=== PATIENT | female | born 2000 | race Caucasian/White ===

== ENCOUNTER → 2021-01-07 11:05 | Outpatient (BNVA) | payer BC, SELFPAY | PROVIDERS: Visit Provider Advanced Practice Midwife | DX: Z32.01 Encounter for pregnancy test, result positive (principal) | CPT/HCPCS: 81025 ==

== ENCOUNTER 2021-01-28 13:44 | Outpatient (REF) | payer BC, SELFPAY ==
[2021-01-28 15:48] LABS: MANUAL DIFF FLAG NO
[2021-01-28 15:53] LABS: Basophils Percent Auto 0.2 % (0-2); Eosinophils Absolute Auto 0.1 X10*3/uL (0.0-0.4); Eosinophils Percent Auto 0.5 % (0-4); Hematocrit 38.2 % (37-47); Hemoglobin 13.7 g/dl (12.0-16.0); Imm Gran Abs Auto 0.04 X10*3/uL (0.00-0.03); Imm Gran Pct Auto 0.4 % (0.0-0.4); Lymphocytes Absolute Auto 1.9 X10*3/uL (1.2-4.9); Lymphocytes Percent Auto 16.3 % (20-40); Mean Corpuscular HGB Conc 35.9 g/dl (31.0-35.0); Mean Corpuscular Hemoglobin 30.7 pg (27.0-33.0); Mean Corpuscular Volume 85.7 fL (80-98); Mean Platelet Volume 11.5 fL (9.4-12.3); Monocytes Absolute Auto 0.8 X10*3/uL (0.1-1.2); Monocytes Percent Auto 6.8 % (2-11); Neutrophils Absolute Auto 8.6 X10*3/uL (2.0-8.3); Neutrophils Percent Auto 75.8 % (45-73); Platelet Count 263 X10*3/uL (160-400); Red Blood Count 4.46 X10*6/uL (4.20-5.50); Red Cell Distribution Width 11.7 % (11.0-16.0); White Blood Count 11.4 X10*3/uL (4.8-10.8)
[2021-01-28 16:35] LABS: Syphilis Screen Nonreactive (Nonreactive)
[2021-01-28 16:39] LABS: Amphetamine Screen Urine Not Detected (Not Detect); Barbiturates, Urine Not Detected (Not Detect); Benzodiazepines Screen Urine Not Detected (Not Detect); Cannabinoid Screen Urine POSITIVE (Not Detect); Cocaine Screen Urine Not Detected (Not Detect); Opiate Screen Urine Not Detected (Not Detect); Phencyclidine Screen Urine Not Detected (Not Detect)
[2021-01-31 08:04] LABS: HBsAGNum1 0.38 S/CO (0.00-0.99); Hepatitis B Surface Antigen Negative (Negative)
[2021-01-31 08:09] LABS: HIV AB/AG Nonreactive (Nonreactive); HIV Num 1 0.06 S/CO (0.00-0.99); ~HepC Num1 0.08 S/CO (0.00-0.79); ~Hepatitis C Antibody Nonreactive (Nonreactive)
== END 2021-01-28 13:45 | disposition home or self-care (01) ==
LOC: HO.LAB 13:44
PROVIDERS: Visit Provider Advanced Practice Midwife
DX: Z34.90 Encounter for supervision of normal pregnancy, unspecified, unspecified trimester (principal)
CPT/HCPCS: 80307; 85025; 86762; 86780; 86787; 86803; 86850; 86886; 86900; 86901; 87340; 87389; 99212

== ENCOUNTER 2021-02-15 12:51 | Outpatient (REF) | payer BC, SELFPAY ==
[2021-02-16 09:47] LABS: CT PCR NOT DETECTED (Not Detect.); NG PCR NOT DETECTED (Not Detect.)
[2021-02-16 13:46] LABS: BV Int Neg Control Negative (Negative); BV Int Pos Control Positive (Positive)
== END 2021-02-15 12:52 | disposition home or self-care (01) ==
LOC: HO.LAB 12:51
PROVIDERS: Visit Provider Advanced Practice Midwife
DX: Z34.90 Encounter for supervision of normal pregnancy, unspecified, unspecified trimester (principal); Z20.2 Contact with and (suspected) exposure to infections with a predominantly sexual mode of transmission
CPT/HCPCS: 87480; 87491; 87510; 87591; 87660; 99212

== ENCOUNTER 2021-02-18 12:48 | Outpatient (REF) | payer BC, SELFPAY ==
--- NOTE | ~2021-02-18 | US_ITS ---
EXAMINATION: OBSTETRICAL ULTRASOUND, FIRST TRIMESTER HISTORY: 21-year-old at 12.0 weeks of gestation NT screening COMPARISON: None TECHNIQUE: Real time transabdominal imaging with color and M-mode Doppler. FINDINGS: A single, live IUP CRL of 48.7 mm c/w 11.5wks is noted. Heart Rate: 163 beats per minute. Normal yolk sac seen. NT was 1.5.mm. NB Present The embryo appears sonographically wnl for this GA. Both maternal ovaries are seen and appear normal. GESTATIONAL AGE: 1. Established GA: 12.0 wks 2. GA from AUA: 11.5 wks ESTIMATED DATE OF DELIVERY: 1. Established MISBAH: 09/02/2021 2. MISBAH from AUA: 09/04/2021 US/US OB 1T nuc measure IMPRESSION: 1. iA single live IUP 2. Size equals dates 3. NT of 1.5 mm MFM Consultation: I reviewed the ultrasound findings along with significance of NT measurement. The NT of less than 3mm is generally reassuring. However, the sensitivity for T21 detection is only 60%. I reviewed the availability of serum aneuploidy screening which includes cell-free DNA and placental protein based tests. I discussed the sensitivity, false-positive rate, and other limitations associated with each test. I also reviewed the availability of invasive diagnostic tests that are associated small but definite risk of miscarriage. We also reviewed the differences between screening tests and diagnostic tests. After our discussion, she opted for the First trimester screening that is based on cell-free DNA or non-invasive testing (NIPT). The result will be faxed to your office in approximately 7 days. A follow up at 18 weeks for survey has been scheduled. Thank you very much for this referral. Total time 20 minutes. The time spent was devoted to counseling the patient about the disease and diagnosis, coordinating care including reviewing her records, pertinent lab data and studies, as well as discussing diagnostic evaluation and workup, plan therapeutic interventions and future disposition of care. This includes any additional research needed to obtain further information in formulating the plan of care of this patient. This note was generated with a voice recognition program. Please excuse any errors which may have been overlooked during my review of this note. Sometimes these errors may affect the content or meaning of a given sentence.
== END 2021-02-18 12:49 | disposition home or self-care (01) ==
LOC: HO.US 12:48
PROVIDERS: Visit Provider Advanced Practice Midwife
DX: Z36.82 Encounter for antenatal screening for nuchal translucency (principal)
CPT/HCPCS: 76813

== ENCOUNTER → 2021-02-25 14:36 | Outpatient (BNVA) | payer BC, SELFPAY | PROVIDERS: Visit Provider Advanced Practice Midwife | DX: Z34.90 Encounter for supervision of normal pregnancy, unspecified, unspecified trimester (principal); Z3A.13 13 weeks gestation of pregnancy | CPT/HCPCS: 81003; 99212 ==

== ENCOUNTER → 2021-03-15 14:15 | Outpatient (BNVA) | payer BC, SELFPAY | PROVIDERS: Visit Provider Advanced Practice Midwife | DX: O99.322 Drug use complicating pregnancy, second trimester (principal); F12.90 Cannabis use, unspecified, uncomplicated; Z3A.15 15 weeks gestation of pregnancy | CPT/HCPCS: 81003; 99212 ==

== ENCOUNTER 2021-04-08 12:52 | Outpatient (REF) | payer BC, SELFPAY ==
--- NOTE | ~2021-04-08 | US_ITS ---
EXAMINATION: US OBSTETRICAL CLINICAL INFORMATION: 21-year-old at 19.0 weeks of gestation Screening anomaly COMPARISON: 02/18/2021 TECHNIQUE: Real-time transabdominal ultrasound was performed using C1-5 megahertz transducer. FINDINGS: A single, active, fetus is seen in vertex presentation. The placenta is posterior without previa, and the amniotic fluid volume is wnl. MEASUREMENTS: 1. Biparietal Diameter: 4.3 cm; 19.1 wks 2. Occipital Frontal Diameter: 5.4 cm 3. Head Circumference: 16.4 cm; 18.3 wks 4. Abdominal Circumference: 13.0 cm; 18.4 wks 5. Femur Length: 3.0 cm; 19.2 wks 6. Humerus Length: 2.8 cm; 19.0 wks 7. Tibia Length: 2.5 cm; 18.6 wks 8. Ulna Length: 2.7 cm; 19.6 wks 9. Lateral ventricle: 0.7 cm 10. Cerebellum: 1.9 cm; 19.3 wks 11. Cisterna Magna: 0.3 cm 12. Nuchal Fold: 3.5 mm 13. Heart Rate: 152 beats per minute Rt ovary: normal Lt ovary: normal Cervical length 3.0 cm on T/A. GESTATIONAL AGE: 1. Established GA: 19.0 wks 2. GA from [facility]: 18.6 wks ESTIMATED DATE OF DELIVERY: 1. Established MISBAH: 09/02/2021 2. MISBAH from [facility]: 09/03/2021 ANATOMY: The visualized anatomy includes but not limited to: 1. Cranium: Normal 2. Intracranial anatomy: cavum septum pellucidi, lateral ventricles, choroid plexus, cerebellum, posterior fossa, third and fourth ventricles. 3. face: orbits, lip/palate, profile, nasal bone 4. Heart: four-chamber view of the heart, ventricular septum, foramen ovale, pulmonary vein, left and right outflow tracts, three-vessel view, 3 vessel trachea view, aortic and ductal arches, situs.. 5. Diaphragm: Normal 6. Abdominal wall: Normal 7. Cord Insertion: Normal 8. Spine: Cervical, thoracic, lumbar, sacral. 9. Stomach: Normal size and shape 10. Right Kidney: Normal 11. Left Kidney: Normal 12. 3 vessel cord: Normal 13. Upper extremity: Open hands, fifth digit. 14. Lower extremity: Tibia, fibula, bilateral feet. 15. Bladder: Normal 16. Genitalia: Female, patient aware US/US OB /maternal detail IMPRESSION: 1. Single, living, intrauterine with appropriate biometry. 2. Normal survey DISCUSSION: I reviewed today's ultrasound findings. We discussed the limitations of ultrasound in diagnosing aneuploidy and other congenital abnormalities. I reviewed the differences between screening test and diagnostic test. Amniocentesis was discussed and declined. She had low risk N IPT. She was informed that the baseline incidence of congenital abnormalities is approximately 3-5%. Not all these conditions are diagnosable in utero. RECOMMENDATIONS: 1. Follow-up when necessary Thank you for allowing me to participate in her care. Total time 30 minutes. The time spent was devoted to counseling the patient about the disease and diagnosis, coordinating care including reviewing her records, pertinent lab data and studies, as well as discussing diagnostic evaluation and workup, plan therapeutic interventions and future disposition of care. This includes any additional research needed to obtain further information in formulating the plan of care of this patient. This note was generated with a voice recognition program. Please excuse any errors which may have been overlooked during my review of this note. Sometimes these errors may affect the content or meaning of a given sentence.
== END 2021-04-08 12:53 | disposition home or self-care (01) ==
LOC: HO.US 12:52
PROVIDERS: Visit Provider Advanced Practice Midwife
DX: Z34.92 Encounter for supervision of normal pregnancy, unspecified, second trimester (principal); Z36.3 Encounter for antenatal screening for malformations
CPT/HCPCS: 76811

== ENCOUNTER → 2021-04-12 14:37 | Outpatient (BNVA) | payer BC, SELFPAY | PROVIDERS: Visit Provider Advanced Practice Midwife | DX: Z34.92 Encounter for supervision of normal pregnancy, unspecified, second trimester (principal); Z3A.19 19 weeks gestation of pregnancy | CPT/HCPCS: 81003; 99212 ==

== ENCOUNTER → 2021-05-10 11:29 | Outpatient (BNVA) | payer BC, SELFPAY | PROVIDERS: Visit Provider Advanced Practice Midwife | DX: Z34.02 Encounter for supervision of normal first pregnancy, second trimester (principal); Z3A.23 23 weeks gestation of pregnancy | CPT/HCPCS: 81003; 99212 ==

== ENCOUNTER 2021-06-06 09:48 | Outpatient (REF) | payer BC, SELFPAY ==
[2021-06-06 13:22] LABS: Hematocrit 35.7 % (37-47); Hemoglobin 12.4 g/dl (12.0-16.0); Mean Corpuscular HGB Conc 34.7 g/dl (31.0-35.0); Mean Corpuscular Hemoglobin 31.2 pg (27.0-33.0); Mean Corpuscular Volume 89.7 fL (80-98); Mean Platelet Volume 11.9 fL (9.4-12.3); Platelet Count 186 X10*3/uL (160-400); Red Blood Count 3.98 X10*6/uL (4.20-5.50); Red Cell Distribution Width 12.1 % (11.0-16.0); White Blood Count 14.2 X10*3/uL (4.8-10.8)
[2021-06-06 13:55] LABS: Glucose 1 Hour PP 50gm Dose 89 mg/dL (60-140)
[2021-06-06 14:00] LABS: Amphetamine Screen Urine Not Detected (Not Detect); Barbiturates, Urine Not Detected (Not Detect); Benzodiazepines Screen Urine Not Detected (Not Detect); Cannabinoid Screen Urine POSITIVE (Not Detect); Cocaine Screen Urine Not Detected (Not Detect); Fentanyl, urine Not Detected (Not Detect); Opiate Screen Urine Not Detected (Not Detect); Phencyclidine Screen Urine Not Detected (Not Detect)
[2021-06-06 15:00] LABS: Syphilis Screen Nonreactive (Nonreactive)
== END 2021-06-06 09:49 | disposition home or self-care (01) ==
LOC: HO.LAB 09:48
PROVIDERS: Visit Provider Advanced Practice Midwife
DX: O26.892 Other specified pregnancy related conditions, second trimester (principal); F12.90 Cannabis use, unspecified, uncomplicated; Z20.2 Contact with and (suspected) exposure to infections with a predominantly sexual mode of transmission; Z3A.27 27 weeks gestation of pregnancy
CPT/HCPCS: 80307; 81003; 85027; 86780; 86850; 99212

== ENCOUNTER → 2021-06-22 09:40 | Outpatient (BNVA) | payer BC, SELFPAY | PROVIDERS: Visit Provider Advanced Practice Midwife | DX: O26.893 Other specified pregnancy related conditions, third trimester (principal); Z67.91 Unspecified blood type, Rh negative; Z3A.29 29 weeks gestation of pregnancy | CPT/HCPCS: 96372; 99212 ==

== ENCOUNTER → 2021-07-07 10:35 | Outpatient (BNVA) | payer BC, SELFPAY | PROVIDERS: Visit Provider Obstetrics & Gynecology | DX: O99.323 Drug use complicating pregnancy, third trimester (principal); F12.90 Cannabis use, unspecified, uncomplicated; Z3A.31 31 weeks gestation of pregnancy | CPT/HCPCS: 90471; 90715; 99212 ==

== ENCOUNTER → 2021-07-25 08:44 | Outpatient (BNVA) | payer BC, SELFPAY | PROVIDERS: Visit Provider Advanced Practice Midwife | DX: O99.213 Obesity complicating pregnancy, third trimester (principal); O26.00 Excessive weight gain in pregnancy, unspecified trimester; E66.9 Obesity, unspecified; O26.893 Other specified pregnancy related conditions, third trimester; Z3A.34 34 weeks gestation of pregnancy | CPT/HCPCS: 81003; 90686; 99212 ==

== ENCOUNTER 2021-08-08 19:37 | Emergency (ER) | payer BC, SELFPAY ==
[2021-08-08] VITALS (14 sets, daily range): BP systolic 112–154; BP diastolic 55–97; PULSE 76–110; RESP 16–30; TEMP 36.8; O2SAT 97–100; BMI 35.7
--- NOTE | 2021-08-08 19:50 | PC.NURSE ---
2 IV lines established. 1 li of NS infusing per MD Strange order. Covid swab, T&S and all other labs obtained and sent.
--- NOTE | 2021-08-08 20:00 | PC.NURSE ---
x 2 at bedside with multiple staff. OB DR Blanco paged STAT for impending delivery. T 143 @ this time. VSS.
[2021-08-08 20:04] LABS: MANUAL DIFF FLAG NO
[2021-08-08] MEDS: 0.9 % Sodium Chloride 1,000 ML 999 ML IV (20:06)
[2021-08-08 20:19] LABS: Alanine Aminotransferase 12 U/L (0-31); Albumin Level 3.4 g/dL (3.5-5.0); Alkaline Phosphatase 152 U/L (39-117); Anion Gap 20 (12-20); Aspartate Amino Transferase 14 U/L (5-31); Bilirubin Direct 0.2 mg/dL (0.0-0.5); Bilirubin Total 0.3 mg/dL (0.0-1.0); Blood Urea Nitrogen 7 mg/dL (9-16); Calcium 8.6 mg/dL (8.4-10.2); Carbon Dioxide 13 mmol/L (22-29); Chloride 106 mmol/L (96-108); Creatinine Clr Calc Pharmacy 175.8; Estimated Glomerular Filt Rate > 60; Glucose Random 127 mg/dL (60-115); Potassium 3.5 mmol/L (3.3-5.1); Sodium 135 mmol/L (135-145); Total Protein 6.2 g/dL (6.5-8.0)
[2021-08-08 20:28] LABS: Basophils Percent Auto 0.1 % (0-2); Eosinophils Percent Auto 0.1 % (0-4); Hematocrit 37.7 % (37.0-47.0); Hemoglobin 13.1 g/dl (12.0-16.0); Imm Gran Abs Auto 0.21 X10*3/uL (0.00-0.03); Imm Gran Pct Auto 0.9 % (0.0-0.4); Lymphocytes Absolute Auto 1.8 X10*3/uL (1.2-4.9); Lymphocytes Percent Auto 8.2 % (20-40); Mean Corpuscular HGB Conc 34.7 g/dl (31.0-35.0); Mean Corpuscular Hemoglobin 30.9 pg (27.0-33.0); Mean Corpuscular Volume 88.9 fL (80.0-98.0); Monocytes Absolute Auto 0.9 X10*3/uL (0.1-1.2); Monocytes Percent Auto 3.8 % (2-11); Neutrophils Absolute Auto 19.2 x10*3/uL (2.0-8.3); Neutrophils Percent Auto 86.9 % (45-73); Platelet Count 201 X10*3/uL (160-400); Red Blood Count 4.24 X10*6/uL (4.20-5.50); Red Cell Distribution Width 12.6 % (11.0-16.0); White Blood Count 22.1 X10*3/uL (4.8-10.8)
[2021-08-08 20:39] LABS: COVID-19 Test Negative (Negative)
--- NOTE | 2021-08-08 20:47 | PC.NURSE ---
2039 Head of baby delivered, nuchal cord around neck. Baby delivered @ 2043, first 9. HR of baby 140 at time of delivery. Per Zerbe to infuse 500 ml of 20 mg of Pitocin in 1 li of LR; infusing per order once shoulders delivered @ 2039.
--- NOTE | 2021-08-08 20:50 | PC.NURSE ---
Cord blood sample obtained per MD Bella pierson.
--- NOTE | 2021-08-08 20:52 | PC.NURSE ---
10 minute 9
--- NOTE | 2021-08-08 20:54 | PC.NURSE ---
Addendum entered by Aylin Carias 08/08/21 20:55: Placenta noted to be completely intact/ Original Note: Placenta delivered @ 2053.
--- NOTE | 2021-08-08 21:00 | PC.NURSE ---
Vitals on baby: HR 156 bpm, RR 60, axillary temp 98.1
--- NOTE | 2021-08-08 21:07 | PC.NURSE ---
Dr Blanco at bedside for sutures.
--- NOTE | 2021-08-08 21:18 | P.CONOB_ITS ---
OB Consult Note - HPI Data Service Date: 08/08/21 Primary Care Provider: None Physician Narrative I was called on Mag De La Cruz who is a 21 year old female at 36 weeks of gestation presented with crampy abdominal pain and urge to push, pelvic exam by Dr. 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 Paternal Grandmother Lung tumor Paternal Aunt Breast cancer Social History Social History Household Members: Family Alcohol intake: former Substance Use Type: Marijuana Trauma History: none Advance Directives: No Advance Directives Information Provided: Yes Patient : Yes Gender identity: Female Meds Allergies Allergy/AdvReac Type Severity Reaction Status Date / Time No Known Allergies Allergy Verified 08/08/21 19:40 Home Medications Medication Instructions Recorded Confirmed Last Taken Type vitamins with calcium 1 tab PO DAILY 01/28/21 07/25/21 Unknown History no.72-iron 29 mg-folic acid 1 mg tablet OB Flowsheet OB Flowsheet & Tools OB Flowsheet Initial Weight: 175 lb Date -?-?-?-?-?-?-?-?-?-?-?-?- EGA Weight Gest Week Fundal Ht Present FHR move Efface % Edema BP PrePreg We Weight GTT -?-?-?-?-?-?-?-?-?-?-?-?- Glucose LV Protein Blood Type 01/28/21 -?-?-?-?-?-?-?-?-?-?-?-?- 9w 0d 172 lb (-3 lb) 172 lb -?-?-?-?-?-?-?-?-?-?-?-?- 02/15/21 -?-?-?-?-?-?-?-?-?-?-?-?- 11w 4d 188 lb (+13 lb) unknown 11 0 110/62 188 lb -?-?-?-?-?-?-?-?-?-?-?-?- 02/25/21 -?-?-?-?-?-?-?-?-?-?-?-?- 13w 0d 184 lb (+9 lb) 13 150 102/60 184 lb -?-?-?-?-?-?-?-?-?-?-?--?- 03/15/21 -?-?-?-?-?-?-?-?-?-?-?-?- 15w 4d 187 lb (+12 lb) 15 140 110/60 187 l b -?-?-?-?-?-?-?-?-?-?-?-?- 04/12/21 -?-?-?-?-?-?-?-?-?-?-?-?- 19w 4d 196 lb (+21 lb) 20 150 100/60 196 l b -?-?-?-?-?-?-?-?-?-?-?-?- 05/10/21 -?-?-?-?-?-?-?-?-?-?-?-?- 23w 4d 195 lb (+20 lb) 23 150 active 132/88 195 lb -?-?-?-?-?-?-?-?-?-?-?-?- 06/06/21 -?-?-?-?-?-?--?-?-?-?-?-?- 27w 3d 208 lb (+33 lb) 29 140 active 100/60 208 lb -?-?-?-?-?-?-?-?-?-?-?-?- 06/22/21 -?-?-?-?-?-?-?-?-?-?-?-?- 29w 5d 208 lb 8 oz (+33 lb 8 oz) 29 130 active 100/60 208 lb 8 oz -?-?-?-?-?-?-?-?-?-?-?-?- 07/07/21 -?-?-?-?-?-?-?-?-?-?-?-?- 31w 6d 218 lb (+43 lb) 31 140 active 100/60 218 lb -?-?--?-?-?-?-?-?-?-?-?-?- 07/25/21 -?-?-?-?-?-?-?-?-?-?-?-?- 34w 3d 228 lb (+53 lb) 34 ?? 140 active 118/68 228 lb -?-?-?-?-?-?-?-?-?-?-?-?- MISBAH Calculator Estimated Delivery Date Method Current WG Current Estimate 09/02/21 LMP (Certain) 36w 3d Plans 21 y/o EDC: 09/02/21 AB negative- rec'd rhogam at 28w Obesity: enc. healthy diet, exercise daily x 30min. Counseled/initiated BASA protocol until 6 wks pp Marijuana smoker: advised to quit. Counsled re: Marijuana use-counseled re: stopping, not to use during . Advised random UDS, testing at delivery, testing, family welfare social work professor visit/assessment , possible filing 51A. Provide a smoke free environment at home and in the car, and no exposure to second hand smoke. Rh negative: Rhogam at 28wk given - hx of anxiety: EPDS 7 at intake. offered RVCC-declined, she reports good support from family - cigarette smoker-quit in first trimester NT: study Panorama: low risk, female FAS: study Lives with FOB and his family, smokers (outside the home) Plans to bottle feed Tdap given on 07/07 COVID vaccine recommended Influenza vaccine to be given next visit, 07/21 Notes Visit Date: 07/25/21 Patient is here for her visit at 34 weeks and 3 days she has gained 10 lb since the last visit 24 hour recall reveals high calorie meal last night. Patient's that she was doing well avoiding marijuana but she did smoke 2 weeks ago because she woke up nauseous and could not take her vitamins or eat without it. I recommended against using marijuana as an excuse to take vitamins and that they can be taken at any point during the day. Revisited the rationale that was discussed at the last visit with Dr. Bella Umaña. also cautioned against excessive weight gain and discussed healthier choices she is taking the baby aspirin. She said she will get the flu shot today. discussed balancing intake with activity. RTC 2 weeks. Daja Rivera Visit Date: 07/07/21 Presenting for routine OB visit with no complaints, no contractions, no leakage of fluid or bleeding. Good movement. On vitamin 1 tablet p.o. q.d. and baby aspirin 162 mg p.o. q.d. A/P: 31 weeks and 6 days of gestation with: 1-history of positive THC on urine tox screen-the patient states that she quit 4 weeks ago, will repeat urine tox screen. Discussed with the patient the following effects of Marijuana use on : -Studies noted that children who were exposed to marijuana in utero had lower scores on tests of visual problem solving, visual?motor coordination, decreased attention span and behavioral problems by age 14 years and visual analysis, poorer reading and spelling scores and lower teacher-perceived school performance, smaller lengths and head circumferences as well as lower weights among exposed offspring. These findings were more pronounced among women who used more marijuana, particularly during the first and second trimesters -Available evidence does not consistently suggest that marijuana causes structural anatomic defects in humans except one study showed that marijuana use in the first month of , the odds of anencephaly in the offspring of users was significantly increased to 2.5 - No increase in the rates of test but had somewhat higher stillbirth rate, no increase in the risk of -At the end, the patient was informed that screening substance abuse will be done throughout this , the purpose of which is to allow treatment of the woman?s substance use, not to punish or prosecute her; In addition the patient was informed of the potential ramification of a positive screen result including mandatory reporting requirements 2-Rh negative, the patient received RhoGAM last visit 3-counseled the patient regarding COVID and flu vaccine and Tdap, all the pros and cons, risks, and benefits were discussed with the patient, recommended for the patient received those vaccines. Patient will proceed with COVID vaccine would prefer to have the flu vaccine next visit year will receive Tdap today. 4- labor warnings given to the patient, she is to call if contractions occur more than 6 an hour, any leakage of fluid or bleeding or decreased movement, continue on vitamin and baby aspirin daily. Follow-up in 2 weeks Mino Blanco Visit Date: 06/22/21 Patient is here for visit she is feeling fairly good she appears slightly edematous all over but she does not feel it except that her feet could she did a lot a walking at the [place] the other day for 5 or 6 hours. She feels she is eating pretty well she goes for walks often with her boyfriend she is getting ready for the baby. Her blood work was all within normal limits and she is not anemic and no signs of diabetes she is a B negative with a negative antibody screen so she got her RhoGAM today with explanation. Discussed every 2 week visit from here on out and she knows what to call for. Daja Rivera Visit Date: 06/06/21 27.3 wk ANUJA. Taking PNV, BASA qd. Good FM. Denies LOF, VB or abd pain. Doing well with no concerns. Good appetite and stays well hydrated. Feels like she is eating more recently. Gained 13lbs since last visit. She is sleeping well. She will do GTT and 28 week labs today after visit. She is not signed up for [facility], she has plans to call this week. Has discontinued marijuana use on week ago. Counseled on UDS at next visit. Discussed: PTL, PEC and decreased FM warnings and when to call for further evaluation. Maintain Covid-19 precautions and COVID vaccine per CDC recommendations. Staying well hydrated, drink 8-10 glasses of water per day, maintaining a healthy diet and light exercise to help prevent excessive weight gain. FKC: have something to eat and drink, should have 5 kicks in 1hr or 10 kicks in 2 hrs, if not call immediately for evaluation. Rhogam to be done this week pending ABS. Kimberly Marshall Visit Date: 05/10/21 23.4 wk ANUJA. Feeling well. Taking PNV and BASA. Good FM, no LOF, VB or abd pain. She reports nausea, she had 1 episode of vomiting this morning. Currently not using MJ. She used last week to help with her nausea. She admits to not using B6 and Unisom as ordered, she uses Unisom occ asionally for sleep. Reviewed B6 and Unisom protocol. She is eating well with adequate water intake. Plan 28 week labs at next visit. Discussed: PTL - LOF, VB, abd pain, regular contractions. PEC - headaches: not resolved with 2 regular strength Tylenol doses, visual disturbances warnings and when to call for further evaluation. Maintain Covid-19 precautions. Naseem Seth Visit Date: 04/12/21 19.4 wk ANUJA. Feeling well. Taking PNV. Good FM, no LOF, VB or abd pain. Reviewed labs with the patient. Counseled re: marijuana and tobacco use. She reports quitting tobacco in the first trimester and has decreased her marijuana use. She uses marijuana for nausea, which she says has improved. She has not taken B6/Unisom for weeks. It did not help her in the first trimester. Currently living with her boyfriend and his family. She reports that they smoke outside of the home. Discussed marijuana use: counseled re: stopping, not to use during . Advised random UDS, testing at delivery, testing, family welfare social work professor visit/assessment , possible filing 51A. Provide a smoke free environment at home and in the car, and no exposure to secondhand smoke. Recommended online childbirth classes, WIC enrollment and [facility] classes. ABneg blood type. Discussed: PTL - LOF, VB, abd pain, regular contractions. PEC - headaches: not resolved with 2 regular strength Tylenol doses, visual disturbances warnings and when to call for further evaluation. Maintain Covid-19 precautions. BASA protocol until after 6 wks initiated today. Counseled re: the BASA protocol to prevent PEC due to risk factors including first and overweightness. The patient is agreeable, Rx'd BASA. Codi Cooley Visit Date: 03/15/21 pt is here for her pnv- mostly the n&v is better- but sunday she threw up more. she's been taking the unisom only to help her sleep if she needs it, but not the vit b6. Mostly she's trying to wean off marijuana- but she is still smoking about once a day to help her deal with the nausea. Discussed and urged to quit. has FAS scheduled. discussed moderation in wt gain overall. Daja Shelton [place] Visit Date: 02/25/21 Patient is here for visit there was some confusion that she had her physical at her last visit but since we were not able to hear the heart rate then we were able to hear it today and she was glad to hear that. She is trying to eat well and has lost weight in results even though she is not having as much nausea and vomiting and only threw up once today she feels she is doing much better the see bands on her wrists are working better now. She is trying to not use marijuana much she only has used it to help her get something down in the day but she is leaning away from it I did discuss the ramifications of marijuana in and urged quitting. I reviewed all her test results which were normal and the panoramic result s came in since she checked them this morning so they were given to her in an envelope. Her next visit can be in a month and her FA S ultrasound will be in 5-6 w. Daja Shelton [place] Visit Date: 02/15/21 Patient is here for her new OB physical exam she has 11 weeks and 4 days by dates she reports that she is trying to eat well and following an lissett on her phone to choose healthier snacks I did notice 16 lb weight gain in 2 weeks so I did furnish her with information about the Mediterranean diet and encouraged mor e activity and moderation and drinking of water which she assures me she is. She is in between states moving from [place] to [place] but will be staying here all week. She was nervous about her 1st electrical helper exam I showed her her anatomy which was within normal limits she is size equals dates but I was unable to hear FHT possibly secondary to adipose and gestational age she has a and she ultrasound scheduled for Sunday so dates can be reassessed at that point. I did discuss with her the possibility that the might not be as far long as she thinks. She is feeling slightly better with the nausea and only takes the Unisom when she needs it. Her EP DS score was 7. She says everything is fine with the relationship. I did not discuss the positive marijuana screen further at this visit. I reviewed her labs which were within normal limits and her blood type which is AB-negative and discussed RhoGAM which will be given at 28 weeks and why. Daja Shelton [place] Visit Date: 01/28/21 20 yr old G1 here for Nurse intake. LMP 11/26/20, MISBAH 09/02/21. Pt is currently living in [place], but moving to [place] next week to live with her boyfriend and his family. was not planned but she is getting used to it. She is having nausea and vomiting, but is using Vit B6 and Unisom which she says helps a lot. Reviewed with pt more frequent smalller meals, keep well hydrated. pt to call if unable to keep fluids down for more than 12 hrs. pt was smoking cigs and MJ daily but stopped when she found out she was . She does report hx of anxiety in past and with meds.She was advised to call if any new anxiety arises and she needs referral. Discussed practice with pt including 24 hr investor relations specialist MD. She is aware we are delivering at [facility]. Pt accepts.Reviewed NT u/s andPanorama testing, if she desires. Pt denies any fam hx of Colon or ovarian cancer. She has a paternal aunt with breast cancer. Discussed lab work including UDS. Labs ordered and pt to do today.NT is scheduled, as well as OB PE. Pt aware to call with any questions or concerns. Felicia Cadet History 1 Elective abortions 0 Para 0 Spontaneous abortions 0 Hx # Term Pregnancies 0 Ectopic pregnancies 0 Hx # Pregnancies 0 Multiple births 0 OB Consult Results Labs CBC & Chem 7: 08/08/21 19:56 08/08/21 19:56 Labs: Short CBC 08/08/21 Range/Units 19:56 WBC 22.1 H (4.8-10.8) X10*3/uL Hgb 13.1 (12.0-16.0) g/dl Hct 37.7 (37.0-47.0) % Plt Count 201 (160-400) X10*3/uL BMP 08/08/21 19:56 Sodium 135 Potassium 3.5 Chloride 106 Carbon Dioxide 13 L BUN 7 L Creatinine 0.59 Calcium 8.6 Liver Function 08/08/21 Range/Units 19:56 Total Bilirubin 0.3 (0.0-1.0) mg/dL Direct Bilirubin 0.2 (0.0-0.5) mg/dL AST 14 (5-31) U/L ALT 12 (0-31) U/L Alkaline Phosphatase 152 H (39-117) U/L Albumin 3.4 L (3.5-5.0) g/dL Antibody Screen Antibody Screen POSITIVE 08/08/21 19:56 OB - CN: A/P Assessment and Plan (1) : Status: Acute Assessment and Plan: In within 20 minutes the patient was pushing at +2 to 3 pushed for few minutes Dr. Strange deliverered the baby vertex presentation was followed by the placenta and cord blood collection I was asked to take over after delivery. inspection revealed first-degree perineal laceration and a right periurethral laceration under local anesthesia and using 3-0 Vicryl for the first-degree perineal laceration and a 4-0 Vicryl for the right periurethral laceration that were repaired with no complication. Patient tolerated the procedure well. Mom and baby will be transferred to [facility]. OB Procedures - Admit Record Additional Comments Dr. Strange did the delivery and delivery of the placenta followed by cord collection. I took over afterwards, inspection revealed first-degree day perineal laceration was repaired under local anesthetic with 3-0 Vicryl and a right periurethral laceration repaired under local anesthesia with 4-0 Vicryl. The patient tolerated the procedure well.
--- NOTE | 2021-08-08 21:21 | ED.PREGNANCY ---
HPI - General Chief complaint: General Medical Stated complaint: Contractions Time Seen by Provider: 08/08/21 21:21 Source: patient Mode of arrival: ambulatory Limitations: no limitations History of Present Illness HPI Narrative: Patient comes into the emergency room complaining of uterine contractions. Patient is known to be a at 36 weeks of gestational age. Patient states that 3 hours prior to arrival she started ashley. Patient does not remember having her water break, she thinks that her membranes ruptured possibly 36 hours ago approximately. Patient complaining of contractions lasting 30 seconds, reoccurring every minute and a half approximately. Related Data Home Medications Medication Instructions Recorded Confirmed vitamins with calcium 1 tab PO DAILY 01/28/21 07/25/21 no.72-iron 29 mg-folic acid 1 mg tablet Previous Rx's Medication Instructions Recorded aspirin 81 mg chewable tablet (St 162 mg PO DAILY #30 tab 04/12/21 Isaiah Aspirin) Allergies Allergy/AdvReac Type Severity Reaction Status Date / Time No Known Allergies Allergy Verified 08/08/21 19:40 Review of Systems Review of Systems: Constitutional : No Weight loss, No Fever, No Chills, No Night Sweats, No Fatigue, No Malaise ENT/Mouth : No Hearing loss, No Ear Pain, No Nasal Congestion, No Sinus Pain, No Hoarseness, No sore throat, No Rhinorrhea, No Swallowing Difficulty Eyes: No Eye Pain, No Swelling, No Redness, No Foreign Body, No Discharge, No Vision Changes Cardiovascular : No Chest Pain, No SOB, No Dyspnea on Exertion, No Orthopnea, No Edema, No Palpitations Respiratory : No Cough, No Sputum, No Wheezing, No Smoke Exposure, No Dyspnea Gastrointestinal : No Nausea, No Vomiting, No Diarrhea, No Constipation, No abdominal Pain, No Hematochezia, No Melena Genitourinary : Complaining of painful uterine contractions lasting 30 seconds, recurring every minute and half Musculoskeletal : No joint pain, No Myalgias, No Joint Swelling Skin : No Skin Lesions, No rash Neuro : No Weakness, No Numbness, No Paresthesias, No Loss of Consciousness, No Dizziness, No Headache Psych : No Anxiety/Panic, No Depression, No SI/HI/AH/VH, No Social Issues, Heme/Lymph: No Bruising, No Bleeding,No Lymphadenopathy Endocrine : No Polyuria, No Polydipsia, No Temperature Intolerance PMFSH Past Medical History Medical History Marijuana use Family History Family History Maternal Grandmother No problems noted. Paternal Grandmother Lung tumor Paternal Aunt Breast cancer Social History Social History (Reviewed 07/25/21 @ 09:04 by [facility]) Household Members: Family Alcohol intake: former Substance Use Type: Marijuana Trauma History: none Advance Directives: No Advance Directives Information Provided: Yes Patient : Yes Gender identity: Female Physical Exam Vital Signs: Vital Signs: Last Vital Signs Temp 98.3 F 08/08/21 19:40 Pulse 82 08/08/21 22:11 Resp 20 08/08/21 22:11 BP 122/77 08/08/21 22:11 Pulse Ox 98 08/08/21 21:36 Body Mass Index 35.7 Const: Other: Appearance: Alert. Oriented X3. Very comfortable ashley Eyes: Pupils equal, round and reactive to light. ENT: Pharynx normal. Neck: Normal inspection. Neck supple. No lymph nodes noted. No crepitus CVS: Normal heart rate and rhythm. Pulses normal. Normal S1 and S2 Respiratory: No respiratory distress. Breath sounds normal. No Wheezing. No rales Abdomen: Soft and nontender. No rigidity. No distention. : 10 cm dilated, head in +3 station Skin: Skin warm and dry. Normal skin color. Normal skin turgor. Extremities: No lower extremity edema. No Lacerations. No Rash Neuro: Oriented X 3. No motor deficit. No sensory deficit. Moving all extermities. No slurred speech. Course Course Course Narrative: Unknown time of rupture of membranes. Patient progressed uneventfully to normal spontaneous delivery at 08:40, a female infant, clear fluid, shoulder without incidence. Baby girl to mom's abdomen, cover with warm blankets and dried. Apgars 9/9 at 1 and 5 minutes of life. Weight 2460 g, 5 lb 6.8 oz. Spontaneous delivery of placenta with 3 vessel cord by control traction and maternal effort. Placenta appears complete and intact. Additional flow following placental delivery controlled with Pitocin, initially 10 IM after shoulder delivery, then 20 units in 1 L NS . Estimated blood loss [address] Blanco took over pt's care for the laceration repair, pt has a 2nd degree tear in the right labia, periurethral. The perineum was repaired under lidocaine anesthesia, grade 1 laceration. Normal anatomy restored, hemostasis achieved. Mom and baby are stable in recovery process. We called [facility]. Since patient has all her records in [facility], they recommended to transfer the patient to [facility]. [facility] accepted the patient and the baby MDM - OB/Uterine Contractions Lab Data Result diagrams: 08/08/21 19:56 08/08/21 19:56 Labs: Lab Results 08/08/21 08/08/21 08/08/21 Range/Units 19:56 19:56 19:56 WBC 22.1 H (4.8-10.8) X10*3/uL RBC 4.24 (4.20-5.50) X10*6/uL Hgb 13.1 (12.0-16.0) g/dl Hct 37.7 (37.0-47.0) % MCV 88.9 (80.0-98.0) fL MCH 30.9 (27.0-33.0) pg MCHC 34.7 (31.0-35.0) g/dl RDW 12.6 (11.0-16.0) % Plt Count 201 (160-400) X10*3/uL MPV 12.0 (9.4-12.3) fL Immature Gran % (Auto) 0.9 H (0.0-0.4) % Neut % (Auto) 86.9 H (45-73) % Lymph % (Auto) 8.2 L (20-40) % Heard % (Auto) 3.8 (2-11) % Eos % (Auto) 0.1 (0-4) % Baso % (Auto) 0.1 (0-2) % Lymph # (Auto) 1.8 (1.2-4.9) X10*3/uL Heard # (Auto) 0.9 (0.1-1.2) X10*3/uL Eos # (Auto) 0.0 (0.0-0.4) X10*3/uL Baso # (Auto) 0.0 (0.0-0.2) X10*3/uL Abs Immat Gran (auto) 0.21 H (0.00-0.03) X10*3/uL Absolute Neuts (auto) 19.2 H (2.0-8.3) x10*3/uL Absolute Nucleated RBC 0.000 (0.0-0.012) X10*3/uL Nucleated RBC % (auto) 0.0 (0.0-0.2) /100WBC Sodium 135 (135-145) mmol/L Potassium 3.5 (3.3-5.1) mmol/L Chloride 106 (96-108) mmol/L Carbon Dioxide 13 L (22-29) mmol/L Anion Gap 20 (12-20) BUN 7 L (9-16) mg/dL Creatinine 0.59 (0.5-1.4) mg/dL Estim Creat Clear Calc 175.8 Estimated GFR > 60 Random Glucose 127 H (60-115) mg/dL Calcium 8.6 (8.4-10.2) mg/dL Total Bilirubin 0.3 (0.0-1.0) mg/dL Direct Bilirubin 0.2 (0.0-0.5) mg/dL AST 14 (5-31) U/L ALT 12 (0-31) U/L Alkaline Phosphatase 152 H (39-117) U/L Total Protein 6.2 L (6.5-8.0) g/dL Albumin 3.4 L (3.5-5.0) g/dL COVID-19 (LEANA) Negative (Negative) COVID-19 Clin Com See Note Blood Type Antibody Screen Antibody Identification 08/08/21 Range/Units 19:56 WBC (4.8-10.8) X10*3/uL RBC (4.20-5.50) X10*6/uL Hgb (12.0-16.0) g/dl Hct (37.0-47.0) % MCV (80.0-98.0) fL MCH (27.0-33.0) pg MCHC (31.0-35.0) g/dl RDW (11.0-16.0) % Plt Count (160-400) X10*3/uL MPV (9.4-12.3) fL Immature Gran % (Auto) (0.0-0.4) % Neut % (Auto) (45-73) % Lymph % (Auto) (20-40) % Heard % (Auto) (2-11) % Eos % (Auto) (0-4) % Baso % (Auto) (0-2) % Lymph # (Auto) (1.2-4.9) X10*3/uL Heard # (Auto) (0.1-1.2) X10*3/uL Eos # (Auto) (0.0-0.4) X10*3/uL Baso # (Auto) (0.0-0.2) X10*3/uL Abs Immat Gran (auto) (0.00-0.03) X10*3/uL Absolute Neuts (auto) (2.0-8.3) x10*3/uL Absolute Nucleated RBC (0.0-0.012) X10*3/uL Nucleated RBC % (auto) (0.0-0.2) /100WBC Sodium (135-145) mmol/L Potassium (3.3-5.1) mmol/L Chloride (96-108) mmol/L Carbon Dioxide (22-29) mmol/L Anion Gap (12-20) BUN (9-16) mg/dL Creatinine (0.5-1.4) mg/dL Estim Creat Clear Calc Estimated GFR Random Glucose (60-115) mg/dL Calcium (8.4-10.2) mg/dL Total Bilirubin (0.0-1.0) mg/dL Direct Bilirubin (0.0-0.5) mg/dL AST (5-31) U/L ALT (0-31) U/L Alkaline Phosphatase (39-117) U/L Total Protein (6.5-8.0) g/dL Albumin (3.5-5.0) g/dL COVID-19 (LEANA) (Negative) COVID-19 Clin Com Blood Type AB Negative Antibody Screen POSITIVE Antibody Identification Anti-D Critical Care Time Critical Care Time Critical Care Time: Yes Total Critical Care Time: 60 Attestation: 60 minutes spent in direct patient care Discharge Plan Discharge Clinical Impression: Baby delivered more than 24 hours after rupture of membranes Patient Disposition: Xfer Acute Care Hospital Transfer Details: [facility] Prescriptions: No Action PNV,calcium 72-iron,carb-folic 29 mg iron- 1 mg tablet 1 tab PO DAILY RF: 0 aspirin [[facility] Aspirin] 81 mg tablet,chewable 162 mg PO DAILY Qty: 30 RF: 6
--- NOTE | 2021-08-08 22:02 | PC.NURSE ---
This RN contacting pharmacy regarding order for Pitocin infusion as ER MD unable to put order in. Pharmacy to correct.
--- NOTE | 2021-08-08 22:03 | PC.NURSE ---
Mom further elaborates, G1, EDC 09/02. Mom denies any complications throughout thus far. States that she felt a gush of fluids on 08/06 but denies any further leakage/pain, states she did not think anything of it. Mom reports contractions starting approx 3 hours before [place] [facility], contractions noted to be 1 minute apart. Pt immediately transferred into room 14. Baby born @ 2043. VSS. Bleeding controlled. Placenta intact. EMS contacted for transport to [facility].
--- NOTE | 2021-08-08 22:35 | PC.NURSE ---
Pharmacy unable to put in order for Pitocin as ordered by MD. See comments in MAR for dose instructions. 500 ml bolus initially infused @ 2039. Additional 500 ml bolus infusing @ 125 ml/hr.
--- NOTE | 2021-08-08 22:45 | PC.NURSE ---
Call to [facility] regarding transfer to [facility]
--- NOTE | 2021-08-08 22:59 | PC.NURSE ---
Report given to ROBIN Jose, [facility].
== END 2021-08-08 23:26 | disposition short-term general hospital (02) ==
PROVIDERS: Emergency Provider Emergency Medicine
DX: O42.113 Preterm premature rupture of membranes, onset of labor more than 24 hours following rupture, third trimester (principal); O71.82 Other specified trauma to perineum and vulva; O99.324 Drug use complicating childbirth; F12.90 Cannabis use, unspecified, uncomplicated; Z3A.36 36 weeks gestation of pregnancy; Z37.0 Single live birth; Z20.822 Contact with and (suspected) exposure to COVID-19
CPT/HCPCS: 36415; 59409; 80053; 82248; 85025; 86850; 86870; 86900; 86901; 87635; 96360; 96372; 99285; 99291; J2590

== ENCOUNTER → 2021-09-21 13:25 | Outpatient (BNVA) | payer BC, SELFPAY | PROVIDERS: Visit Provider Advanced Practice Midwife | DX: Z39.2 Encounter for routine postpartum follow-up (principal); Z30.09 Encounter for other general counseling and advice on contraception; Z30.011 Encounter for initial prescription of contraceptive pills | CPT/HCPCS: 99212 ==

== ENCOUNTER 2022-05-24 13:52 | Outpatient (REF) | payer BC, SELFPAY ==
[2022-05-25 06:20] LABS: CT PCR NOT DETECTED (Not Detect.); NG PCR NOT DETECTED (Not Detect.)
== END 2022-05-24 13:53 | disposition home or self-care (01) ==
LOC: HO.LAB 13:52
PROVIDERS: Visit Provider Advanced Practice Midwife
DX: Z01.419 Encounter for gynecological examination (general) (routine) without abnormal findings (principal); Z20.2 Contact with and (suspected) exposure to infections with a predominantly sexual mode of transmission
CPT/HCPCS: 87491; 87591; 88142

== ENCOUNTER 2023-06-07 10:00 | Outpatient (REF) | payer BC, SELFPAY ==
[2023-06-08 09:51] LABS: CT PCR NOT DETECTED (Not Detect.); NG PCR NOT DETECTED (Not Detect.)
== END 2023-06-07 10:01 | disposition home or self-care (01) ==
LOC: HO.LNP 10:00
PROVIDERS: Visit Provider Advanced Practice Midwife
DX: Z01.419 Encounter for gynecological examination (general) (routine) without abnormal findings (principal); Z20.2 Contact with and (suspected) exposure to infections with a predominantly sexual mode of transmission
CPT/HCPCS: 0353U

== ENCOUNTER 2023-06-07 10:00 | Outpatient (AMB) | payer BC, SELFPAY ==
--- NOTE | 2023-06-07 10:07 | MHC.OFFVIS ---
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 Scribed for MACKENZIE Kelly by Tara Cee medical records manager, on 06/07/2023 at 10:20 am EST. Supervising Film Or Videotape Editor: Supervising Film Or Videotape Editor Present (Tessa) Allergies No Known Allergies Allergy (Verified 06/07/23 10:10) Is last menstrual period known: Yes Last menstrual period: 06/03/23 HPI HPI Comments History of Present Illness Details She is a premenopausal woman presenting for annual exam. Doing well with no operations program manager concerns. She admits to eating healthy and tries to stay active with exercise. Currently sexually active. Uses OCP and is doing well; is interested in future . Denies vaginal itching and irritation. STD screening and blood work offered; she declines. Denies family hx of breast, colon and ovarian cancer. Last pap smear 05/25/22 She denies any contraindications to control such as: migraines with aura, history of DVT or pulmonary emboli, high blood pressure, liver disease, thrombolic disorders, Lupus, +YANNI, or smoking. PFSH Medical History Marijuana use Family History Maternal Grandmother No problems noted. Paternal Grandmother Lung tumor Paternal Aunt Breast cancer Brother Hypertension Obesity Social History Household Members: Family Both parents involved: Yes Alcohol intake: current Alcohol intake frequency: holidays/special occasions only Patient Tobacco Use Status: Never used Tobacco Substance Use Type: Marijuana Trauma History: none Sexual orientation: Straight/Heterosexual Gender identity: Female Female Reproductive History Menstrual Age of Menarche: 13 Duration of menses: 3-5 days Date of last menstrual period: 06/03/23 control method: pills Total pregnancies: 1 Full term: 1 Number of Living Children: 1 Date of last pap smear: 05/25/22 Physical Exam Vital Signs: Last Vital Signs BP 122/80 06/07/23 10:08 BMI result Body Mass Index 38.6 Const General: cooperative, healthy appearing, no acute distress, well developed and alert Orientation/consciousness: patient oriented x3 HEENT Head: Yes normal to inspection Eyes General: appearance normal, both eyes and all related structures Neck Neck: Yes normal visual inspection Thyroid: Thyroid normal Chest Chest palpation & inspection: normal inspection of the chest Breast/axilla inspection: normal inspection of the breasts (no puckering, dimpling, peau de orange, retraction, discharge, masses) Breast/axilla palpation: normal palpation of the breasts Resp Effort & Inspection: normal respiratory effort GI Inspection: Yes normal to inspection Palpation (GI): Soft to palpation (to palpation) Rectal Exam - Female: deferred General: Yes bladder normal to inspection External Female Exam: normal external appearance and normal appearance of the urethra Speculum Exam - Vagina: normal appearance of the vagina, normal palpation and normal vaginal discharge Speculum Exam - Cervix: normal appearance of the cervix, normal palpation and Other cervical findings present (small amount of dark red blood present) Bimanual exam- vagina & uterus: normal palpation and normal palpation Bimanual Exam- Adnexa, other: normal adnexae and no masses Skin General skin exam: no rashes or lesions noted Neuro General: patient oriented x3 Cognition (Neuro): normal cognition Extrem General: Yes normal to inspection Psych Attitude: cooperative Thought process: Normal thought process present Assessment & Plan Assessment & Plan (1) Encounter for well woman exam: Code(s): Z01.419 - Encounter for gynecological examination (general) (routine) without abnormal findings Plan: Discussed: Current recommendations for pap smears per ASCCP guidelines. Breast awareness and periodic self breast exams. Maintaining a healthy lifestyle including a well balanced diet and routine exercise. All of her questions and concerns were addressed to the best of my ability. RTO in one year for AG. (2) Contraceptive surveillance: Code(s): Z30.40 - Encounter for surveillance of contraceptives, unspecified Plan: She was instructed to go to ER if she develops loss of vision, severe headache that does not resolve, chest pain, difficulty breathing, abdominal pain, or pain or tenderness in extremity. Call the office with any concerns. (3) Pre-conception counseling: Code(s): Z31.69 - Encounter for other general counseling and advice on procreation Plan: Advised to start PNV id considering future . Orders: Orders CT NG by PCR Today Z20.2 - Contact with and (suspected) exposure to infections with a predominantly sexual mode of transmission Medications: Refilled desogestrel-ethinyl estradiol 0.15-0.03 mg 1 tab PO DAILY 84 tabs 4RF 84 days Coding Level of Care Code Est Pt Prev Care 18-39y(66159) Diagnoses Encounter for well woman exam Z01.419 Contraceptive surveillance Z30.40 Pre-conception counseling Z31.69
[2023-06-07 10:08] VITALS: BP 122/80; BMI 38.6
== END 2023-06-07 10:28 | disposition home or self-care (01) ==
PROVIDERS: Visit Provider Advanced Practice Midwife
DX: Z01.419 Encounter for gynecological examination (general) (routine) without abnormal findings (principal); Z30.40 Encounter for surveillance of contraceptives, unspecified; Z31.69 Encounter for other general counseling and advice on procreation
CPT/HCPCS: 99395

== ENCOUNTER 2024-08-15 13:59 | Outpatient (REF) | payer BC, SELFPAY ==
[2024-08-16 05:53] LABS: CT PCR NOT DETECTED (Not Detect.); NG PCR NOT DETECTED (Not Detect.)
[2024-08-16 12:06] LABS: Bacterial Vaginosis PCR NEGATIVE (Negative); Candida Group PCR NOT DETECTED (Not Detect); Candida glab krusei PCR NOT DETECTED (Not Detect); Trichomonas vaginalis PCR NOT DETECTED (Not Detect)
== END 2024-08-15 14:00 | disposition home or self-care (01) ==
LOC: HO.LNP 13:59
PROVIDERS: Visit Provider Advanced Practice Midwife
DX: Z01.419 Encounter for gynecological examination (general) (routine) without abnormal findings (principal); Z11.3 Encounter for screening for infections with a predominantly sexual mode of transmission
CPT/HCPCS: 0352U; 87491; 87591

== ENCOUNTER 2024-08-15 13:59 | Outpatient (AMB) | payer BC, SELFPAY ==
[2024-08-15 14:00] VITALS: BP 118/70; BMI 39.1
--- NOTE | 2024-08-15 14:00 | A.OFFVIS_ITS ---
Vital Signs 08/15/24 14:00 Height 5 ft 5 in Weight 235 lb 2 oz BMI 39.1 BP 118/70 Blood Pressure Location Lt brachial Position Sitting Intake Visit Reasons: Annual/DO NOT RS Allergies No Known Allergies Allergy (Verified 08/15/24 14:04) HPI Comments Details: She is a premenopausal woman presenting for annual examination. Doing well with concerns. Doing well on OCPs and needs a refill. She denies any contraindications to mike h control such as: migraines with aura, history of DVT or pulmonary emboli, high blood pressure, liver disease, thrombolic disorders, Lupus, +YANNI, breast cancer, or smoking. Currently is sexually active. She denies vaginal itching and irritation. STI screening offered; she accepts, declines bled boric. She tries to eat healthy and stays active with exercise. Denies family history of ovarian or colon cancer. FH breast cancer-P.aunt. Last pap smear 2021, negative. [facility] Medical History Marijuana use Family History Maternal Grandmother No problems noted. Paternal Grandmother Lung tumor Paternal Aunt Breast cancer Brother Hypertension Obesity Social History (Updated 08/15/24 @ 14:11 by Codi Cooley CNM) Household Members: Family Both parents involved: Yes Alcohol intake: current Alcohol intake frequency: holidays/special occasions only Patient Tobacco Use Status: Never used Tobacco Substance Use Type: Marijuana Trauma History: none Current occupation: [employer] Sexual orientation: Straight/Heterosexual Gender identity: Female Female Reproductive History Menstrual Age of Menarche: 13 Duration of menses: 3-5 days Date of last menstrual period: 07/30/24 control method: pills Total pregnancies: 1 Full term: 1 Number of Living Children: 1 Date of last pap smear: 05/25/22 History of abnormal pap smear: No History of STI: No Review of Systems Const All systems reviewed & are unremarkable except as noted in HPI and below Reports as per HPI Eyes Reports no additional complaints ENT Reports no additional complaints Card Reports no additional complaints Resp Reports no additional complaints GI Reports as per HPI and Reports no additional complaints Reports as per HPI Musc Reports no additional complaints Skin/Breast Reports as per HPI Neuro Reports no additional complaints Psych Reports no additional complaints Endo Reports no additional complaints Ned/Lymph Reports no additional complaints Aller/Immun Reports no additional complaints Physical Exam Vital Signs: Last Vital Signs BP 118/70 08/15/24 14:00 BMI result Body Mass Index 39.1 Const General: cooperative, healthy appearing, no acute distress, well developed and alert Orientation/consciousness: patient oriented x3 HEENT Head: Yes normal to inspection Eyes General: appearance normal, both eyes and all related structures Neck Neck: Yes normal visual inspection Thyroid: Thyroid normal Chest Chest palpation & inspection: normal inspection of the chest and other (no puckering, dimpling, peau de orange, retraction, discharge, masses) Breast/axilla inspection: normal inspection of the breasts Breast/axilla palpation: normal palpation of the breasts Resp Effort & Inspection: normal respiratory effort GI Inspection: Yes normal to inspection Palpation (GI): Soft to palpation Rectal Exam - Female: deferred General: Yes bladder normal to palpation External Female Exam: normal external appearance and normal appearance of the urethra Speculum Exam - Vagina: normal appearance of the vagina, normal palpation and normal vaginal discharge Speculum Exam - Cervix: normal appearance of the cervix and normal palpation Bimanual exam- vagina & uterus: normal bimanual exam, normal palpation, uterine size normal, bladder normal to palpation, normal palpation and non-tender Bimanual Exam- Adnexa, other: no masses Skin General skin exam: no rashes or lesions noted Rashes: no rashes Neuro General: patient oriented x3 Cognition (Neuro): normal cognition Extrem General: Yes normal to inspection Psych Attitude: cooperative Thought process: Normal thought process present Assessment & Plan Assessment & Plan (1) Encounter for well woman exam with routine gynecological exam: Code(s): Z01.419 - Encounter for gynecological examination (general) (routine) without abnormal findings Category: Medical Plan Discussed: Current recommendations for pap smears per ASCCP guidelines. GC and chlamydia, BV panel obtained today. Breast awareness and periodic breast exams. Maintain a healthy lifestyle including a well balanced diet and routine exercise. Use condoms for STI and prevention. control hormone use warnings: go to ER if and loss of vision, blindness, severe headache, chest pain or difficulty breathing, severe abdominal pain, or any pain or swelling in an extremity. Patient verbalizes understanding and agrees to the plan of care. She was given opportunity to ask questions and all questions were answered to the best of my ability. RTO in one year for annual commercial insurance underwriter examination. This note is constructed using voice recognition software. While every effort has been made to ensure accuracy, inspector balance wheel motion errors may have been included. Medications: Refilled desogestrel-ethinyl estradiol 0.15-0.03 mg 1 tab PO DAILY 84 days 84 tabs 4RF Coding Level of Care Code Est Pt Prev Care 18-39y(15499) Diagnoses Encounter for well woman exam with routine gynecological exam Z01.419
== END 2024-08-15 14:18 | disposition home or self-care (01) ==
PROVIDERS: Visit Provider Advanced Practice Midwife
DX: Z01.419 Encounter for gynecological examination (general) (routine) without abnormal findings (principal)
CPT/HCPCS: 99395

== ENCOUNTER 2025-08-18 12:52 | Outpatient (REF) | payer BC, SELFPAY ==
[2025-08-18 16:09] LABS: Bacterial Vaginosis PCR NEGATIVE (Negative); Candida Group PCR NOT DETECTED (Not Detect); Candida glab krusei PCR NOT DETECTED (Not Detect); Trichomonas vaginalis PCR NOT DETECTED (Not Detect)
[2025-08-18 16:42] LABS: CT PCR NOT DETECTED (Not Detect.); NG PCR NOT DETECTED (Not Detect.)
== END 2025-08-18 12:53 | disposition home or self-care (01) ==
LOC: HO.LAB 12:52
PROVIDERS: Visit Provider Advanced Practice Midwife
DX: Z01.419 Encounter for gynecological examination (general) (routine) without abnormal findings (principal); Z20.2 Contact with and (suspected) exposure to infections with a predominantly sexual mode of transmission
CPT/HCPCS: 81515; 87491; 87591

== ENCOUNTER 2025-08-18 12:52 | Outpatient (AMB) | payer BC, SELFPAY ==
--- NOTE | 2025-08-18 12:56 | MHC.OFFVIS ---
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 Doing well on OCP's. She denies any contraindications to control such as: migraines with aura, history of DVT or pulmonary emboli, high blood pressure, liver disease, thrombolic disorders, Lupus, +YANNI, breast cancer, or smoking. Currently is sexually active. She denies vaginal itching or irritation. STI screening offered; she accepts. Declines blood work. She tries to eat healthy and stays active with exercise-dancing. Last pap smear 2021, negative. [facility] Medical History Marijuana use Family History Maternal Grandmother No problems noted. Paternal Grandmother Lung tumor Paternal Aunt Breast cancer Brother Hypertension Obesity Social History Household Members: Family Both parents involved: Yes Alcohol intake: current Alcohol intake frequency: holidays/special occasions only Patient Tobacco Use Status: Never used Tobacco Substance Use Type: Marijuana Trauma History: none Current occupation: [employer] Sexual orientation: Straight/Heterosexual Gender identity: Female Female Reproductive History Menstrual Age of Menarche: 13 Duration of menses: 3-5 days Date of last menstrual period: 07/29/25 control method: pills Total pregnancies: 1 Full term: 1 Number of Living Children: 1 Date of last pap smear: 05/24/22 (neg) Review of Systems Const All systems reviewed & are unremarkable except as noted in HPI and below Reports as per HPI Eyes Reports no additional complaints ENT Reports no additional complaints Card Reports no additional complaints Resp Reports no additional complaints GI Reports as per HPI and Reports no additional complaints Reports as per HPI Musc Reports no additional complaints Skin/Breast Reports as per HPI Neuro Reports no additional complaints Psych Reports no additional complaints Endo Reports no additional complaints Ned/Lymph Reports no additional complaints Aller/Immun Reports no additional complaints Physical Exam Vital Signs: Last Vital Signs BP 102/60 08/18/25 12:57 BMI result Body Mass Index 38.9 Const General: cooperative, healthy appearing, no acute distress, well developed and alert Orientation/consciousness: patient oriented x3 HEENT Head: Yes normal to inspection Eyes General: appearance normal, both eyes and all related structures Neck Neck: Yes normal visual inspection Thyroid: Thyroid normal Chest Chest palpation & inspection: normal inspection of the chest and other (no puckering, dimpling, peau de orange, retraction, discharge, masses) Breast/axilla inspection: normal inspection of the breasts Breast/axilla palpation: normal palpation of the breasts Resp Effort & Inspection: normal respiratory effort GI Inspection: Yes normal to inspection Palpation (GI): Soft to palpation Rectal Exam - Female: deferred General: Yes bladder normal to palpation External Female Exam: normal external appearance and normal appearance of the urethra Speculum Exam - Vagina: normal palpation and vaginal bleeding Speculum Exam - Cervix: normal appearance of the cervix and normal palpation Bimanual exam- vagina & uterus: normal bimanual exam, normal palpation, uterine size normal, bladder normal to palpation, normal palpation and non-tender Bimanual Exam- Adnexa, other: no masses OB/external & speculum: vaginal bleeding Skin General skin exam: no rashes or lesions noted Rashes: no rashes Neuro General: patient oriented x3 Cognition (Neuro): normal cognition Extrem General: Yes normal to inspection Psych Attitude: cooperative Thought process: Normal thought process present Assessment & Plan Assessment & Plan (1) Encounter for well woman exam with routine gynecological exam: Code(s): Z01.419 - Encounter for gynecological examination (general) (routine) without abnormal findings Category: Medical Plan Discussed: Current recommendations for pap smears per ASCCP guidelines. Breast awareness and periodic breast exams. GC chlamydia and BV panel obtained. Maintain a healthy lifestyle including a well balanced diet and routine exercise. control hormone use warnings: go to ER if and loss of vision, blindness, severe headache, chest pain or difficulty breathing, severe abdominal pain, or any pain or swelling in an extremity. Patient verbalizes understanding and agrees to the plan of care. She was given opportunity to ask questions and all questions were answered to the best of my ability. 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 This note is constructed using voice recognition software. While every effort has been made to ensure accuracy, business education teacher errors may have been included. Orders: Orders Bacterial Vaginosis Panel Today Z20.2 - Contact with and (suspected) exposure to infections with a predominantly sexual mode of transmission CT NG by PCR Vag/Cerv Today Z20.2 - Contact with and (suspected) exposure to infections with a predominantly sexual mode of transmission Pap Smear Today Z01.419 - Encounter for gynecological examination (general) (routine) without abnormal findings Medications: Refilled desogestrel-ethinyl estradiol 0.15-0.03 mg 1 tab PO DAILY 84 tabs 4RF 84 days Coding Level of Care Code Est Pt Prev Care 18-39y(44373) Diagnoses Encounter for well woman exam with routine gynecological exam Z01.419
[2025-08-18 12:57] VITALS: BP 102/60; BMI 38.9
--- OUTSIDE RECORDS SUMMARY | 2025-08-18 16:32 | XMS_ITS | Clinical Summary ---
Author Organization [facility] ity Address [address] [place] [address] Care Team Providers Care System Validation Engineer Name Role Phone Unavailable Primary Care Provider Unavailabl e Social History Tobacco Use Types Packs/Day Years Used Date Smoking Tobacco: Never Assessed Comments Unknown Sex and Gender Information Value Date Recorded Sex Assigned at Not on file Legal Sex Female 12:16 AM EST Gender Identity Not on file Sexual Orientation Not on file Plan of Treatment Health Maintenance Due Date Last Done Comments Gonorrhea/Chlamydia Screening 2001 HPV Vaccines (1 - 3-dose series) 02/05/2016 DTaP,Tdap,and Td Vaccines (1 - Tdap) 02/05/2020 Hepatitis B Vaccines (1 of 3 - 19+ 3-dose series) 02/05/2020 Cervical Cancer Screening: P ap Smear 2022 Depression Screening 09/24/2024 COVID-19 Vaccine (1 - 2024-2 6 season) 2025 Influenza Vaccine (#1) 2025 RSV Immunization Adult Patie nts (1 - 1-dose 75+ series) 02/05/2076 HIB Vaccines Aged Out No longer eligi ble based on patient's age to complete this topic Hepatitis A Vaccines Aged Out No long er eligible based on patient's age to complete this topic IPV Vaccines Aged Out No longer eligi ble based on patient's age to complete this topic MMR Vaccines Aged Out No longer eligi ble based on patient's age to complete this topic Meningococcal ACWY Vaccine Aged Out N o longer eligible based on patient's age to complete this topic Meningococcal B Vaccine Aged Out No l onger eligible based on patient's age to complete this topic Pneumococcal Vaccine: Pediat rics (0 to 5 Years) and At-Risk Patients (6 to 49 Years) Aged Out No longer eligible b ased on patient's age to complete this topic RSV Immunization Patients Un kenia 20 months Aged Out No longer eligible b ased on patient's age to complete this topic Varicella Vaccines Aged Out No longer eligible based on patient's age to complete this topic
--- OUTSIDE RECORDS SUMMARY | 2025-08-18 16:33 | XMS_ITS | Clinical Summary ---
Author Organization [employer] Address [address] [place] [address] [address] [place] [address] Care Team Providers Care Eradicator Name Role Phone Poc, Not Required Pcp Or Unavailable Unavail able Senait Lau Md Primary Care Provider Allergies No known active allergies Medications * This document contains information received from the source organization and may not represent a complete record from that organization. Melatonin 1 mg tabletIndication s:AURELIO (generalized anxiety disorder) 1 tab at 9pm as needed for sleep 1 tablet 01/01/2018 Active Active Problems Problem Noted Date Diagnosed Date Major depressive disorder wi th single episode, in full remission 01/01/2018 AURELIO (generalized anxiety disorder) 01/01/2018 Wears glasses 07/06/2015 Recurrent depressive disorder 07/01/2014 Adjustment disorder with mixed anxiety and depre ssed mood 04/21/2014 BMI (body mass index), pedia tric, greater than or equal to 95% for age 0603/15/2010 Body mass index 85th to < 95th percentile, pedia tric 03/18/2009 Resolved Problems Problem Noted Date Diagnosed Date Resolved Date Transgendered 07/06/2015 08/06/2019 Immunizations Immunization Administration Dates Next Due DTaP Vaccine 03/07/2006, 2,2001,06/12,2001 HFlu B Conj (Unspecified Formulation) ,2001,2001,04/09 HPV9 Vaccine (Gardasil9) 07/18/2017,09/13/2016,1 Hep B Vaccine (Unspecified Formulation) 2001,2001,2001 Influenza Vaccine, 6MOS+, Si ngle Dose, 0.5 mL (Flulaval/Fluzone) 08/24/2020 Influenza Vaccine, Quadrival ent Split Virus Preserv Free >/= 36 Mos 09/13/2016,07/06/2015 MMR Vaccine 02/27/2005,02/12/2002 Meningococcal ACWY (Menactra ) Conjugate Vaccine 07/18/2017,04/05/2012 Meningococcal Group B (Bexse ro) Conjugate Vaccine 08/24/2020,08/06/2019 Pneumococ/Pedi-Conjugate (PCV7) 03/07/20,2001,2001,04/09 Polio Vaccine (Inactivated) 03/07/2006,0 02/12/2002,2001,04/09 TdaP 08/02/2015,04/05/2012 Varicella Vaccine 03/11/2007,05/21/2002 Medical History Medical History Date Comments Major depression 07/01/2014 Transgendered 07/06/2015 Social History Tobacco Use Types Packs/Day Years Used Date Smoking Tobacco: Passive Smo ke Exposure - Never Smoker Cigarettes Smokeless Tobacco: Never Alcohol Use Standard Drinks/Week Comments No 0 (1 standard drink = 0.6 oz pur e alcohol) Hunger Vital Sign Answer Date Recorded Within the past 12 months, y ou worried that your food would run out before you got the money to buy more. Never true 08/06/20 19 Within the past 12 months, t he food you bought just didn't last and you didn't have money to get more. Never true 08/06/2019 PRAPARE - Transportation Answer Date Re corded In the past 12 months, has l ack of transportation kept you from medical appointments or from getting medications? No 07/25 In the past 12 months, has l ack of transportation kept you from meetings, work, or from getting things needed for daily living? No 08/06/2019 Housing Stability Answer Date Recorded Housing Situation I have housing 08/24/2020 Worry About Housing Loss No Housing Conditions Not on file 08/24/2020 Request Assistance Answer Date Recorded Requests Assistance No 08/24/2020 Urgent Assistance Needed No 020 Social Isolation Answer Date Recorded Loneliness or Isolation Sometimes 08/24/20 20 Family Needs Answer Date Recorded Patient or Family Needs No needs 08/24/20 20 Other Needs Not on file 08/24/2020 Safety Answer Date Recorded Do you feel physically and e motionally safe where you currently live? Yes 08/24/2020 Self-Management Confidence Answer Date Recorded Health Self-Management Confidence 8 08/24/2020 Comments No Sex and Gender Information Value Date Recorded Sex Assigned at Not on file Legal Sex Female 4:12 PM EDT Gender Identity Not on file Sexual Orientation Not on file History Length Weight Head Circum Date/Time Gestation Age D/C Weight APGARs Delivery Method Feeding Method 21 (53.3 cm) 9 lb 1.2 oz (4.116 kg) 14.17 (36 cm) 2001 40 wks 8 lb 9.4 oz 1min: 9 5min : 10 Breast Fed Labor Duration Days In Hospital Hospital Name Hospital Location Comments VAG DELIVERY Last Filed Vital Signs Vital Sign Reading Time Taken Comments Blood Pressure 118/76 08/24/2020 1:03 PM EST Pulse 67 06/24/2014 2:06 PM EDT Temperature 36.9 C (98.5 F) 06/24/2014 2:06 PM EDT Respiratory Rate - - Oxygen Saturation - - Inhaled Oxygen Concentration - - Weight 79.8 kg (176 lb) 08/24/2020 1:03 PM EST Height 166.6 cm (5' 5.6 ) 08/24/2020 1:03 PM EST Body Mass Index 28.75 08/24/2020 1:03 PM EST Plan of Treatment Health Maintenance Due Date Last Done Comments OFFICE VISIT 2001 HEP B INITIAL SCREENING 2019 CHLAMYDIA SCREENING FEMALE 16-24 08/06/2020 08/06/2019, 07/18/2017, 07/06/2015 PAP: UPDATE W EDIT MODIFIERS 2022 PERIODIC HEALTH REVIEW 2023 COVID-19 Vaccine ( season) 2025 FLU SEASONAL (#1) 05/25/2025 07/25/2021, 08/24/2020, 09/13/2016, Additional history exists DTAP/TDAP/TD VACCINE (8 - Td or Tdap) 08/02/2025 08/02/2015, 04/05/2012, 03/07/2006, Additional history exists HEP C SCREENING 08/24/2025 08/24/2020 LIPID SCREENING 08/24/2025 08/24/2020 HEPATITIS B VACCINE Completed 2001, 2001, 2001 HAEMOPHILUS INFLUENZA VACCINE Completed 02/12/2002, 2001, 2001, Additional history exists RUBELLA Completed 02/27/2005, 02/12/2002 PNEUMOCOCCAL VACCINE(S) Aged Out 03/07/20, 2001, 2001, Additional history exists No longer eligible based on patient's age to complete this topic POLIO VACCINE Completed 03/07/2006, 01/23, 2001, Additional history exists HPV VACCINE Completed 07/18/2017, 08/25, 07/06/2015 HIV SCREENING Completed 08/24/2020 MENINGOCOCCAL VACCINE (B) Completed 08/24/2020, HEPATITIS A VACCINE Aged Out No longe r eligible based on patient's age to complete this topic RSV Vaccine Infant//toddler Aged Out No longer eligible based on patient's age to complete this topic Procedures Procedure Name Priority Date/Time Associated Diagnosis Comments HEPATITIS C ANTIBODY W/REFLEX TO PCR Routine 08/24/2020 1:59 PM EST Encounter for routine adult health examination without abnormal findings HIV 1/2 ANTIGEN / ANTIBODY 4TH GENERATION W/REFLEX Routine 08/24/2020 1:59 PM EST Encounter for routine adult health examination without abnormal findings HDL Routine 08/24/2020 1:59 PM EST Encounter for routine adult health examination without abnormal findings CHLAMYDIA / GC URINE DNA Routine 08/06/2019 4:57 PM EST Encounter for routine adult health examination without abnormal findings from Last 3 Months or Most Recently Relevant to Health Maintenance Results * HEPATITIS C ANTIBODY W/REFLEX TO PCR (08/24/2020 1:59 PM EST) HEPATITIS C ANTIBODY 0.05 <0.80 Index Value (IV) 08/24/2020 5:56 PM EST [facility] DEPARTMENT OF PATHOLOGY AND LAB MEDICINE Comment: NEGATIVE 0.00 - 0.79 Index Value (IV) Negative Blood (Blood, Venous) Venipuncture / Unknown 08/24/2020 1:59 PM EST 08/24/2020 1:59 PM EST us Senait Lau GENERAL LAB Final Result Performing Organization Address [facility] Co de Phone Number [facility] PATHOLOGY AND LAB MEDICINE [address] [place] [address] * HDL (08/24/2020 1:59 PM EST) Pathologist [facility] HDL 59 >=41 mg/dL 08/24/2020 5:12 PM EST [facility] OF PATHOLOGY AND LAB MEDICINE Blood (Blood, Venous) Venipuncture / Unknown 08/24/2020 1:59 PM EST 08/24/2020 1:59 PM EST us Senait Lau [facility] LAB Final Result Performing Organization Address [facility] Co de Phone Number [facility] PATHOLOGY AND LAB MEDICINE [address] [place] [address] * CHLAMYDIA / GC URINE DNA (08/06/2019 4:57 PM EST) Pathologist [facility] CHLAMYDIA PCR Negative Negative 08/07/2019 5:56 PM EST [facility] DEPARTMENT OF PATHOLOGY AND LAB MEDICINE Comment: Test performed using Aptima Combo2 PCR assay. NEISSERIA GONORRHOEAE PCR Negative Negative 08/07/2019 5:56 PM EST [facility] DEPARTMENT OF PATHOLOGY AND LAB MEDICINE Comment: Test performed using Aptima Combo2 PCR assay. SOURCE URINE 08/07/2019 5:56 PM EST [facility] DEPARTMENT OF PATHOLOGY AND LAB MEDICINE Urine (URINE) Urine / Unknown 08/06/2019 4:57 PM EST 08/06/2019 4:57 PM EST Result [facility] us Senait Lau LAB URINE ORDERABLES Final Re sult Performing Organization Address City/[facility]/ZIP Co de Phone Number [facility] PATHOLOGY AND LAB MEDICINE [address] [place] [address] from Last 3 Months or Most Recently Relevant to Health Maintenance Insurance [employer] Care Teams Eradicator Relationship Specialty Start Date End Date Poc, Not Required Pcp Or PCP - Payer 04/08/14 Senait Lau MD [address] [place] [id number] PCP - General Pediatrics 06/24/14
--- OUTSIDE RECORDS SUMMARY | 2025-08-18 16:33 | XMS_ITS | Encounter Summary ---
Author Organization [facility] Address [address] [place] [address] [address] [place] [id number] Care Team Providers Care Bridge Carpenter Name Role Phone Poc, Not Required Pcp Or Unavailable Unavail able Senait Lau Md Primary Care Provider [phone] Reason for Visit * Reason Comments Referral Encounter Details Date Type Department Care Team (Late st Contact Info) Description 07/25/2016 Telephone [facility] [address] [place] [address] Senait Lau MD [address] [place], [place] [id number] REFERRAL Social History Tobacco Use Types Packs/Day Years Used Date Smoking Tobacco: Passive Smo ke Exposure - Never Smoker Smokeless Tobacco: Never Alcohol Use Standard Drinks/Week Comments No 0 (1 standard drink = 0.6 oz pur e alcohol) Comments No Sex and Gender Information Value Date Recorded Sex Assigned at Not on file Legal Sex Female 4:12 PM EDT Gender Identity Not on file Sexual Orientation Not on file documented as of this encounter Miscellaneous Notes * Telephone Encounter - HumorrisDaja - 07/25/2016 9:54 AM EDT [email or web address] documented in this encounter Plan of Treatment Not on file documented as of this encounter Visit Diagnoses Not on filedocumented in this encounter Care Teams Bridge Carpenter Relationship Specialty Start Date End Date Poc, Not Required Pcp Or PCP - Payer 04/08/14 Senait Lau MD [address] [place] [address] PCP - General Pediatrics 06/24/14 documented as of this encounter
--- OUTSIDE RECORDS SUMMARY | 2025-08-18 16:33 | XMS_ITS | Encounter Summary ---
Author Organization [facility] Address [address] [place] [address] [place] [address] Care Team Providers Care Csm Consultant Name Role Phone Poc, Not Required Pcp Or Unavailable Unavail able Senait Lau Md Primary Care Provider [phone] Reason for Visit * Reason Comments left message to call and book PE Encounter Details Date Type Department Care Team (Late st Contact Info) Description 07/27/2020 Patient Outreach [facility] [address] [place] [phone] Daja Ramos MA left message to call and book PE Social History Tobacco Use Types Packs/Day Years [...] No 08/06/2019 Housing Stability Answer Date Recorded What is your housing situation today? Has cinthya liao 08/06/2019 Are you worried about losing your housing? No 08/06/2019 Housing Conditions Not on file 08/06/2019 Request Assistance Answer Date Recorded Would you like to discuss an y of the needs you identified in this survey with a member of your care team? No 2018 Urgent Assistance Needed Not on file 019 Social Isolation Answer Date Recorded How often do you feel lonely or isolated from those around you? Sometimes 08/06/2019 Family Needs Answer Date Recorded In the past year, have you o r any family members that you live with been unable to get resources (utilities such as power, water, or phone service; clothing; childcare; medicine or other healthcare; employment; etc) when they were really needed? No needs 08/06/2019 Other Needs Not on file 08/06/2019 Self-Management Confidence Answer Date Recorded How confident are you that y ou can control and manage most of your health problems? Please provide numerical response between 0 -10. 0 = Not at all confident, 10= Completely confident. 8 08/06/2019 Comments No Sex and Gender Information Value Date Recorded Sex Assigned at Not on file Legal Sex Female 4:12 PM EDT Gender Identity Not on file Sexual Orientation Not on file documented as of this encounter Plan of Treatment Not on file documented as of this encounter Visit Diagnoses Not on filedocumented in this encounter Care Teams Csm Consultant Relationship Specialty Start Date End Date Poc, Not Required Pcp Or PCP - Payer 04/08/14 Senait Lau MD [address] [place] [id number] PCP - General Pediatrics 06/24/14 documented as of this encounter
== END 2025-08-18 13:25 | disposition home or self-care (01) ==
LOC: HO.HWS 12:53
PROVIDERS: Visit Provider Advanced Practice Midwife
DX: Z01.419 Encounter for gynecological examination (general) (routine) without abnormal findings (principal)
CPT/HCPCS: 99395; 99459

== ENCOUNTER 2025-08-18 13:24 | Outpatient (REF) | payer BC, SELFPAY | END 2025-08-18 13:25 | disposition home or self-care (01) | LOC: HO.LNP 13:24 | PROVIDERS: Visit Provider Advanced Practice Midwife | DX: Z01.419 Encounter for gynecological examination (general) (routine) without abnormal findings (principal); Z20.2 Contact with and (suspected) exposure to infections with a predominantly sexual mode of transmission | CPT/HCPCS: 88175 ==